=== PATIENT | female | born 1955 | race Hispanic/Latino ===

== ENCOUNTER 2018-01-18 14:55 | Outpatient (CLI) | payer BC ==
--- NOTE | 2018-01-18 16:43 | XRay Report ---
XRAY LEFT KNEE 4 THREE VIEWS: 01/18/18 CLINICAL: Left knee pain. FINDINGS: No fracture or dislocation. Mild narrowing of the medial joint space. Small medial and lateral osteophytes. Small patellofemoral osteophytes.No joint effusion.Normal soft tissues. IMPRESSION: Mild osteoarthritis.
== END 2018-01-18 14:56 | disposition home or self-care (01) ==
LOC: SPVIMAG 14:55
PROVIDERS: ATTEND Orthopaedic Surgery Sports Medicine
DX: M17.12 Unilateral primary osteoarthritis, left knee (principal)